=== PATIENT | male | born 1940 | race Caucasian/White ===

== ENCOUNTER 2019-07-20 17:50 | Inpatient (IN) | payer OTHER ==
[~2019-07-20] VITALS: Ht 188 cm; Wt 131.5 kg
[2019-07-20] MEDS ORDERED: AMLODIPINE BESY10 MG (18:02)
[2019-07-20] MEDS ORDERED: LANTUS SOL100 UNIT/1 (18:03)
[2019-07-20] MEDS ORDERED: TIROSINT150 MCG (18:03)
[2019-07-20] MEDS ORDERED: NITROGLYCERIN0.4 MG (18:04)
[2019-07-20] MEDS ORDERED: TOPROL XL100 M1 (18:04)
[2019-07-20] MEDS ORDERED: COZAAR100 MG (18:04)
[2019-07-20] MEDS ORDERED: NOVOLOG FL100 UNIT/1 (18:05)
[2019-07-20] MEDS ORDERED: SIMVASTATIN5 MG (18:05)
[2019-07-20] MEDS ORDERED: XARELTO20 MG (18:06)
[2019-07-20] MEDS ORDERED: TAMS0.4C (18:06)
[2019-07-23] MEDS ORDERED: CIPRO500 MG PO (13:25)
[2019-07-23] MEDS ORDERED: ASPIR 8181 MG PO (13:32)
== END 2019-07-23 15:38 | disposition home or self-care (01) | DRG 689 ==
LOC: ER 17:50 → ICU-2 21:21 → SEC-K 07-22 18:14 → MEDJ 07-22 20:00
PROVIDERS: ADMIT Internal Medicine
PROC: 30233N1 Transfusion of Nonautologous Red Blood Cells into Peripheral Vein, Percutaneous Approach (ICD-10-PCS; principal; 2019-07-21)
PROC: B246ZZZ Ultrasonography of Right and Left Heart (ICD-10-PCS; 2019-07-22)
DX: N39.0 Urinary tract infection, site not specified (principal); I50.23 Acute on chronic systolic (congestive) heart failure; R65.10 Systemic inflammatory response syndrome (SIRS) of non-infectious origin without acute organ dysfunction; I25.810 Atherosclerosis of coronary artery bypass graft(s) without angina pectoris; K92.1 Melena; I11.0 Hypertensive heart disease with heart failure; I08.3 Combined rheumatic disorders of mitral, aortic and tricuspid valves; B96.29 Other Escherichia coli [E. coli] as the cause of diseases classified elsewhere; I48.0 Paroxysmal atrial fibrillation; R55 Syncope and collapse; E03.8 Other specified hypothyroidism; R31.29 Other microscopic hematuria; E11.65 Type 2 diabetes mellitus with hyperglycemia; Z79.4 Long term (current) use of insulin; Z79.01 Long term (current) use of anticoagulants